=== PATIENT | male | born 1950 | race Caucasian/White ===

== ENCOUNTER 2017-01-25 22:14 | Emergency (ER) | payer MEDICARE, OTHER ==
[~2017-01-25] VITALS: Ht 182.9 cm; Wt 90.9 kg
[2017-01-25] MEDS ORDERED: ALLO15TA (22:21)
[2017-01-25] MEDS ORDERED: PARO25TA (22:21)
[2017-01-25] MEDS ORDERED: ATOR40TA75 (22:21)
[2017-01-25] MEDS ORDERED: RAMI5CA (22:21)
[2017-01-25] MEDS ORDERED: ECOT81TA5 PO (22:21)
[2017-01-25] MEDS ORDERED: KETOROLAC 30 MG/ML VIAL (J1885) IV ONE (23:00)
[2017-01-25] MEDS ORDERED: MORPHINE 4 MG/ML 1ML SYRINGE IV PRN (23:00)
[2017-01-25] MEDS ORDERED: ONDANSETRON 4MG/2ML VIAL (J2405) IV ONE (23:00)
[2017-01-25 23:09] LABS: BASO % 0.3 % (0.0-1.0); EOS # 0.2 K/mm3 (0.0-0.50); EOS % 2.4 % (0.0-3.0); LARGE UNSTAINED CELL # 0.1 K/mm3 (0.0-0.4); LARGE UNSTAINED CELL % 1.5 % (0.0-4.0); LYMPH # 1.7 K/mm3 (1.5-4.5); LYMPH % 17.6 % (24.0-44.0); MEAN CORPUSCULAR HGB CONC 34.6 g/dl (32.0-36.5); MEAN CORPUSCULAR VOLUME 89.6 fl (80.0-96.0); MONO # 0.5 K/mm3 (0.0-0.8); MONO % 5.9 % (0.0-5.0); NEUTROPHILS # 6.3 K/mm3 (1.8-7.7); NEUTROPHILS % 72.2 % (36.0-66.0); PLATELET COUNT, AUTOMATED 220 k/mm3 (150-450); RED CELL DISTRIBUTION WIDTH 13.2 % (11.5-14.5); WHITE BLOOD COUNT 8.7 K/mm3 (4.0-10.0)
[2017-01-25 23:11] LABS: ALBUMIN 3.7 GM/DL (3.2-5.2); ALBUMIN/GLOBULIN RATIO 1.03 (1.00-1.93); BILIRUBIN,DIRECT 0.1 MG/DL (0.0-0.2); BILIRUBIN,TOTAL 0.5 MG/DL (0.2-1.0); CALCIUM LEVEL 9.1 MG/DL (8.8-10.2); CREATININE FOR GFR 1.33 MG/DL (0.70-1.30); GLOMERULAR FILTRATION RATE 56.9 (>49); POTASSIUM SERUM 4.1 MEQ/L (3.5-5.1); TOTAL PROTEIN 7.3 GM/DL (6.4-8.2)
--- NOTE | 2017-01-25 23:30 | REPUSA ---
CT of the abdomen and pelvis without contrast Clinical statement: Pain. Technique: Multiple axial CT images were obtained from the base of the lungs to the floor of the pelv is utilizing 5 mm axial slices without administration of contrast. Coronal and sagittal reconstructio ns were also obtained. No comparison is available. Findings: Chest: The visualized lung bases are clear. Abdomen: The kidneys are normal in size bilaterally. There is moderate right-sided hydronephrosis and hydroureter, caused by a 2 mm obstructing stone at the right ureterovesical junction. Mild right-johnathon ed perinephric inflammation is also noted. The left renal collecting system is within normal limits. The liver, spleen, pancreas, gallbladder and adrenal glands are unremarkable. The aorta demonstrates normal caliber and contour. There is no abdominal lymphadenopathy or ascites. Pelvis: The bowel is unremarkable, with no obstructive or inflammatory changes. The appendix is judith l. Minimal sigmoid diverticulosis is appreciated. The urinary bladder is within normal limits. There is no pelvic lymphadenopathy or ascites. The other pelvic structures appear unremarkable. Bones: There are no suspicious osseous abnormalities seen. Moderate degenerative disc disease with sm all disc osteophyte complexes are seen at L4/L5 and L5/S1. Impression: 1. Moderate right-sided hydronephrosis and hydroureter, with right perinephric inflammation, caused b y a 2 mm obstructing stone in the right ureterovesical junction. 2. No obstructive or inflammatory bowel changes. Mild sigmoid diverticulosis. 3. Moderate degenerative disc disease at L4/L5 and L5/S1.
[2017-01-26 01:35] VITALS: O2SAT 96
[2017-01-26] MEDS ORDERED: PERC5TAB12 PO (01:39)
[2017-01-26] MEDS ORDERED: ZOFR4TAB3 PO (01:39)
[2017-01-26] MEDS ORDERED: OXYCODONE/APAP 5MG/325MG(BULK FOR ED) 1 TABLET PO ONE (01:45)
[2017-01-26] MEDS ORDERED: ONDANSETRON 4 MG ORAL DISINTEGRATING TAB (S0181) PO ONE (01:45)
[2017-01-26 01:52] VITALS: BP 151/78
== END 2017-01-26 01:54 | disposition home or self-care (01) ==
LOC: M ED 22:14
DX: N23 Unspecified renal colic (principal); K57.30 Diverticulosis of large intestine without perforation or abscess without bleeding; M10.9 Gout, unspecified; I10 Essential (primary) hypertension; N13.4 Hydroureter; N13.1 Hydronephrosis with ureteral stricture, not elsewhere classified; M51.36 Other intervertebral disc degeneration, lumbar region; M51.37 Other intervertebral disc degeneration, lumbosacral region; Z79.82 Long term (current) use of aspirin; Z79.899 Other long term (current) drug therapy
CPT/HCPCS: 74176; 80048; 80076; 81001; 83690; 85025; 93041; 96374; 96375; 99284; J1885; J2405

== ENCOUNTER → 2018-03-16 | Outpatient (CLI) | payer MEDICARE, OTHER ==
[2018-03-16 17:43] LABS: HEMATOCRIT 41.2 % (42.0-52.0); HEMOGLOBIN 14.4 g/dl (13.5-17.5); MEAN CORPUSCULAR HEMOGLOBIN 32.7 pg (27.0-33.0); MEAN CORPUSCULAR VOLUME 93.6 fl (80.0-96.0); PLATELET COUNT, AUTOMATED 212 10^3/uL (150-450); WHITE BLOOD COUNT 5.8 10^3/uL (4.0-10.0)
[2018-03-16 18:00] LABS: ANION GAP 8 MEQ/L (8-16); BLOOD UREA NITROGEN 19 MG/DL (7-18); CALCIUM LEVEL 8.8 MG/DL (8.8-10.2); CARBON DIOXIDE LEVEL 26 MEQ/L (21-32); CHLORIDE LEVEL 110 MEQ/L (98-107); CREATININE FOR GFR 0.95 MG/DL (0.70-1.30); GLOMERULAR FILTRATION RATE > 60.0 (>49); GLUCOSE, FASTING 97 MG/DL (70-100); POTASSIUM SERUM 4.8 MEQ/L (3.5-5.1); SODIUM LEVEL 144 MEQ/L (136-145)
== END ==
LOC: M WUC 14:31
DX: I25.10 Atherosclerotic heart disease of native coronary artery without angina pectoris (principal); I10 Essential (primary) hypertension
CPT/HCPCS: 80048

== ENCOUNTER 2018-06-24 12:01 | Outpatient (RCR) | payer MEDICARE, OTHER ==
[~2018-06-24 12:01] MED LIST: ALLO15TA; ATOR40TA75; ECOT81TA5 PO; PARO25TA; PERC5TAB12 PO; RAMI1CAP24; ZOFR4TAB14 PO
[2018-06-24] MEDS ORDERED: VITA50TA47 PO (12:43)
[2018-06-24] MEDS ORDERED: CENTCHW4 PO (12:43)
[2018-06-24] MEDS ORDERED: ALLO100T PO (12:45)
[2018-06-24] MEDS ORDERED: BAYE325T12 PO (12:45)
--- NOTE | 2018-06-24 14:21 | CARECAPL ---
Assessment Account #s: Initial Assessment General Diagnoses: CABG Date of event: Mar 26, 2018 Physician: Cb Norton Allergies: Coded Allergies: No Known Allergies (Verified , 01/02/03) Date Entered Program: Jun 24, 2018 Risk strat for cardiac event: Low Exercise Date: Jun 24, 2018 Assessment: Initial Assessment Exercise Prescription Plan educate and increase endurance through exercise Modalities initiated: Treadmill (mets 2.15 RPE 3), Nustep (mets 2.8 RPE 2), Arm Aerometer (mets 3.0 RPE 3), Dumbells (will add), Recumbent Bike (will add) Frequency: 3 Duration (Minutes) 30-60 minutes total exercise a day. 15-20 work intervals in minutes. prn rest intervals in minutes. Functional Capacity Goal Sustained Metabolic Equivalent of a task (MET) goal of 4.0-4.75 for 15-20 minutes. Intensity: 3-Moderate Progression (METS) Increase by: 0.5 METS every: 3-5 sessions Angina with ex: No Target Heart Rate 91-129 age predicted Resistance Training: Yes Weight (pounds): 1 Reps: 8-12 Hypertension: Yes Hypertension controlled with: Medication Resting 149/85 Peak Exercise BP 158/80 Meds ramipril Medications Scheduled Allopurinol (Allopurinol), 300 MG PO DAILY, (Reported) Aspirin (Estella Aspirin), 1 TAB PO DAILY, (Reported) Multivitamins (Centrum), 1 TAB PO DAILY, (Reported) Thiamine HCl (Vitamin B-1), 100 MG PO DAILY, (Reported) Miscellaneous Medications Atorvastatin Calcium (Atorvastatin Calcium), (Reported) Ramipril (Ramipril), (Reported) Discontinued Medications Allopurinol (Allopurinol), (Reported) Discontinued Reason: PCP discontinued med Aspirin (Ecotrin Low Strength), 81 MG PO, (Reported) Discontinued Reason: PCP discontinued med Ondansetron (Zofran Odt), 4 MG PO Q4H PRN for NAUSEA Discontinued Reason: PCP discontinued med Oxycodone/Acetaminophen (Percocet 5-325 mg), 1 TAB PO Q6H PRN for PAIN Discontinued Reason: PCP discontinued med Paroxetine (Paroxetine HCl ER), (Reported) Discontinued Reason: PCP discontinued med Target Goals Individual exercise Rx (1) BP 140/90 or 130/80 if DM or CKD (1) Aerobic active 30+min 5 days per week (1) Nutrition Date: Jun 24, 2018 Assessment: Initial Assessment Lipid- med/supplement atorvastatin Diabetes Diabetes: No Monitor Blood Sugar at home: No Weight Management Weight (lbs): 198.2 Height (inches): 72 Waist Circumference (Inches): 43 BMI: 26.9 Special Diet: low salt Vitamin/Supplements: Multivitamin, Vitamin B Alcohol: weekly Alcohol Type: beer Alcohol Amount: other (10) Diet Access Tool: Rate your plate Score: 38 Intervention Nurse/patient discussion: Yes Dietary Goals eat healthier Referral to Diabetes education: No Referral to lipid clinic: No Referral to weight mangement p: No Education Eating Healthy Target goal LDL-C<100 if triglycerides are >200 Non-HDL-C should be <130 (1) LDL-C<70 for high risk patients (4) HbA1c<7% (1) BMI<25 Waist cir<40in M/<35in F (1) Education Date: Jun 24, 2018 Assessment: Initial Assessment Learning Barriers: cognitive (age related) Knowledge Test Score: 9 Family Support: Yes Tobacco use: Yes Quit: never smoked Tobacco Use Smokeless tobacco: Yes Smokeless tobacco amount: 2 Intervention Referral to smoking cessation: No Individual education and couns: No Tobacco Adjunct: No Education class schedule given: No Attended education classes: No Education: tobacco triggers, CAD, Risk factors, med compliance, cardiac A&P, Angina S/S, Sexuality Target Goals Complete cessation of tobacco use (1). Psychosocial Date: Jun 24, 2018 Assessment: Initial Assessment Psych Test (Initial/Discharge) Tool Used: CESD Score: 12 Intervention Physician Consult: No Physician Referral: No Psychotropic medication none recently discontinued but is asking Dr. Park to restart Education Education: Coping Techniques, S/S depression, Relaxation Techniques Target Goal Assess presence or absence of depression using a valid screening tool (1). Maximize coping skills (2). Positive support system (2). Patient/Program Goal Preventative Medication: Yes Aspirin, Yes SOPHY Inhibitor, Yes Statin/OTR lipid Lowering Fall Risk Assess: No Provider Assessment Session Number: 1 Provider Assessment: Proceed with rehab Yadira Werner RN Jun 24, 2018 14:21
== END 2018-06-28 ==
LOC: M CR 12:01
PROVIDERS: ATTEND Internal Medicine Cardiovascular Disease
DX: Z95.1 Presence of aortocoronary bypass graft (principal)

== ENCOUNTER 2018-07-21 15:01 | Outpatient (RCR) | payer MEDICARE, OTHER ==
--- NOTE | 2018-07-21 10:13 | CARECAPL ---
Assessment Account #s: Re-Assessment I General Diagnoses: CABG Date of event: Mar 26, 2018 Physician: Cb Norton Allergies: Coded Allergies: No Known Allergies (Verified , 01/02/03) Date Entered Program: Jun 24, 2018 Risk strat for cardiac event: Low Exercise Date: Jul 21, 2018 Assessment: Re-Assessment I Exercise Prescription Plan TO EDUCATE AND BUILD ENDURANCE THROUGH MONITORED EXERCISE Modalities initiated: Treadmill (METS=3.39/RPE=3), Cardio-Strider (METS=2.6/RPE=2), Arm Aerometer (METS=3.59/RPE=3), Dumbells (3#/RPE=2), Recumbent Bike (METS=4.5/RPE=4) Frequency: 3 Duration (Minutes) 30-60 minutes total exercise a day. [10-12 work intervals in minutes. 5 MIN PRN rest intervals in minutes. Functional Capacity Goal Sustained Metabolic Equivalent of a task (MET) goal of 4.0-4.75 for 15-20 minutes. Intensity: 3-Moderate Progression (METS) Increase by: 0.5 METS every: 5 sessions TOLERATED Angina with ex: No Target Heart Rate 91-129 AGE PREDICTED Resistance Training: Yes Weight (pounds): 3 Reps: 12-15 Hypertension: Yes Hypertension controlled with: Medication Resting 130/60 Peak Exercise BP 150/70 Medications Scheduled Allopurinol (Allopurinol), 300 MG PO DAILY, (Reported) Aspirin (Estella Aspirin), 1 TAB PO DAILY, (Reported) Multivitamins (Centrum), 1 TAB PO DAILY, (Reported) Thiamine HCl (Vitamin B-1), 100 MG PO DAILY, (Reported) Miscellaneous Medications Atorvastatin Calcium (Atorvastatin Calcium), (Reported) Ramipril (Ramipril), (Reported) Current BP 110/70 Med Change: No Intervention Resistance Training: Yes Education: Self pulse, Ex safety, S/S to report, Low NA diet, BP medication, RPE Scale, Equipment orientation, warm up/cool down, Understand BP, Physical Active Target Goals Individual exercise Rx (1) BP 140/90 or 130/80 if DM or CKD (1) Aerobic active 30+min 5 days per week (1) Nutrition Date: Jul 21, 2018 Assessment: Re-Assessment I Lipid- med/supplement ATORVASTATIN Med Change: No Diabetes Diabetes: No Monitor Blood Sugar at home: No Medication Change: No Weight Management Weight (lbs): 190.4 Special Diet: low salt Vitamin/Supplements: Multivitamin, Vitamin B Alcohol: weekly Alcohol Type: beer Alcohol Amount: other ((10)) Current Weight (pounds): 190.4 Intervention Indirect [employer] Consult: No Nurse/patient discussion: Yes Diet Class: Yes Referral to Diabetes education: No Referral to lipid clinic: No Referral to weight mangement p: No Education Eating Healthy Target goal LDL-C<100 if triglycerides are >200 Non-HDL-C should be <130 (1) LDL-C<70 for high risk patients (4) HbA1c<7% (1) BMI<25 Waist cir<40in M/<35in F (1) Education Date: Jul 21, 2018 Assessment: Re-Assessment I Family Support: Yes Tobacco use: Yes Tobacco Use Smokeless tobacco: Yes Smokeless tobacco amount: 2 Intervention Referral to smoking cessation: No Individual education and couns: No Tobacco Adjunct: No Education class schedule given: No Attended education classes: No Education: tobacco triggers, CAD, Risk factors, med compliance, cardiac A&P, Angina S/S, Sexuality Target Goals Complete cessation of tobacco use (1). Psychosocial Date: Jul 21, 2018 Assessment: Re-Assessment I Intervention Physician Consult: No Physician Referral: No Psychotropic medication NONE RECENTLY, PATIENT WILL DISCUSS WITH DR. SERRATO Med Change: No Stress Management Class: No Uses Stress Management Skills: Yes Education Education: Coping Techniques, S/S depression, Relaxation Techniques Target Goal Assess presence or absence of depression using a valid screening tool (1). Maximize coping skills (2). Positive support system (2). Patient/Program Goal Preventative Medication: Yes Aspirin, Yes SOHPY Inhibitor, Yes Statin/OTR lipid Lowering Fall Risk Assess: Yes (NOT A FALL RISK) Provider Assessment Session Number: 5 Aron Lynch RN Jul 21, 2018 10:13
[~2018-07-21 15:01] MED LIST changes: +ALLO100T PO; +BAYE325T12 PO; +CENTCHW4 PO; +VITA50TA47 PO
== END 2018-07-29 ==
LOC: M CR 15:01
PROVIDERS: ATTEND Internal Medicine Cardiovascular Disease
DX: Z95.1 Presence of aortocoronary bypass graft (principal)

== ENCOUNTER 2018-08-25 15:12 | Outpatient (RCR) | payer MEDICARE, OTHER ==
--- NOTE | 2018-08-16 08:59 | CARECAPL ---
Assessment Account #s: Re-Assessment II General Diagnoses: CABG Date of event: Mar 26, 2018 Physician: Cb Norton Allergies: Coded Allergies: No Known Allergies (Verified , 01/02/03) Date Entered Program: Jun 24, 2018 Risk strat for cardiac event: Low Exercise Date: Aug 12, 2018 Assessment: Re-Assessment II Exercise Prescription Modalities initiated: Treadmill (mets 3.71 RPE 2), Cardio-Strider (mets 2.7 RPE 3), Nustep (mets 3.1 RPE 3), Arm Aerometer (mets 3.1 RPE 3), Dumbells (4lbs RPE 3), Recumbent Bike (mets 4.4 RPE 3) Frequency: 2 Duration (Minutes) minutes total exercise a day. work intervals in minutes. rest intervals in minutes. Functional Capacity Goal Sustained Metabolic Equivalent of a task (MET) goal of for minutes. Progression (METS) Increase by: METS every: sessions Medications Scheduled Allopurinol (Allopurinol), 300 MG PO DAILY, (Reported) Aspirin (Estella Aspirin), 1 TAB PO DAILY, (Reported) Multivitamins (Centrum), 1 TAB PO DAILY, (Reported) Thiamine HCl (Vitamin B-1), 100 MG PO DAILY, (Reported) Miscellaneous Medications Atorvastatin Calcium (Atorvastatin Calcium), (Reported) Ramipril (Ramipril), (Reported) Current BP 138/76 Med Change: No Target Goals Individual exercise Rx (1) BP 140/90 or 130/80 if DM or CKD (1) Aerobic active 30+min 5 days per week (1) Nutrition Date: Aug 16, 2018 Assessment: Re-Assessment II Med Change: No Medication Change: No Current Weight (pounds): 193.4 Intervention Nurse/patient discussion: Yes Target goal LDL-C<100 if triglycerides are >200 Non-HDL-C should be <130 (1) LDL-C<70 for high risk patients (4) HbA1c<7% (1) BMI<25 Waist cir<40in M/<35in F (1) Education Date: Aug 16, 2018 Assessment: Re-Assessment II Target Goals Complete cessation of tobacco use (1). Psychosocial Date: Aug 16, 2018 Assessment: Re-Assessment II Med Change: No Stress Management Class: Yes Uses Stress Management Skills: Yes Education Education: Coping Techniques, S/S depression, Relaxation Techniques Target Goal Assess presence or absence of depression using a valid screening tool (1). Maximize coping skills (2). Positive support system (2). Patient/Program Goal Preventative Medication: Yes Aspirin, Yes SOPHY Inhibitor, Yes Statin/OTR lipid Lowering Fall Risk Assess: No Provider Assessment Session Number: 7 Provider Assessment: Proceed with rehab Yadira Werner RN Aug 16, 2018 08:59
== END 2018-08-26 ==
LOC: M CR 15:12
PROVIDERS: ATTEND Internal Medicine Cardiovascular Disease
DX: Z95.1 Presence of aortocoronary bypass graft (principal)

== ENCOUNTER 2018-09-15 14:06 | Outpatient (RCR) | payer MEDICARE, OTHER ==
--- NOTE | 2018-09-08 11:08 | CARECAPL ---
Assessment Account #s: Re-Assessment II General Diagnoses: CABG Date of event: Jun 24, 2018 Physician: Cb Norton Allergies: Coded Allergies: No Known Allergies (Verified , 01/02/03) Risk strat for cardiac event: Low Exercise Assessment: Re-Assessment II Exercise Prescription Modalities initiated: Treadmill (mets 3.95 RPE 2), Nustep (mets 3.8 RPE 3), Arm Aerometer (mets 3.4 RPE 3), Dumbells (5lbs RPE 2), Recumbent Bike (mets 3.7 RPE 3) Frequency: 2-3 Duration (Minutes) minutes total exercise a day. work intervals in minutes. rest intervals in minutes. Functional Capacity Goal Sustained Metabolic Equivalent of a task (MET) goal of for minutes. Progression (METS) Increase by: METS every: sessions Hypertension: No Hypertension controlled with: Medication Resting 124/76 Peak Exercise BP 142/80 Meds ramipril Medications Scheduled Allopurinol (Allopurinol), 300 MG PO DAILY, (Reported) Aspirin (Estella Aspirin), 1 TAB PO DAILY, (Reported) Multivitamins (Centrum), 1 TAB PO DAILY, (Reported) Thiamine HCl (Vitamin B-1), 100 MG PO DAILY, (Reported) Miscellaneous Medications Atorvastatin Calcium (Atorvastatin Calcium), (Reported) Ramipril (Ramipril), (Reported) Current BP 124/76 Med Change: No Target Goals Individual exercise Rx (1) BP 140/90 or 130/80 if DM or CKD (1) Aerobic active 30+min 5 days per week (1) Nutrition Date: Sep 08, 2018 Assessment: Re-Assessment II Med Change: No Diabetes Diabetes: No Medication Change: No Current Weight (pounds): 192.6 Education Eating Healthy Education Goals Met: Yes Target goal LDL-C<100 if triglycerides are >200 Non-HDL-C should be <130 (1) LDL-C<70 for high risk patients (4) HbA1c<7% (1) BMI<25 Waist cir<40in M/<35in F (1) Education Date: Sep 08, 2018 Assessment: Re-Assessment II Intervention Education: CAD, Risk factors, med compliance, cardiac A&P, Angina S/S, Sexuality Education Goals Met: Yes Target Goals Complete cessation of tobacco use (1). Psychosocial Date: Sep 08, 2018 Assessment: Re-Assessment II Med Change: No Stress Management Class: Yes Uses Stress Management Skills: Yes Education Education: Coping Techniques, S/S depression, Relaxation Techniques Education Goals Met: Yes Target Goal Assess presence or absence of depression using a valid screening tool (1). Maximize coping skills (2). Positive support system (2). Fall Risk Assess: No Provider Assessment Session Number: 10 Provider Assessment: Proceed with rehab Yadira Werner RN Sep 08, 2018 11:08
--- NOTE | 2018-09-15 09:27 | CARECAPL ---
General Date of event: Mar 26, 2018 Physician: Cb Norton Allergies: Coded Allergies: No Known Allergies (Verified , 01/02/03) Date Entered Program: Jun 24, 2018 Risk strat for cardiac event: Low Exercise Date: Sep 15, 2018 Assessment: Followup/Discharge Exercise Prescription Modalities initiated: Treadmill (mets 3.95 RPE 3), Nustep (mets 3.9 RPE 3), Arm Aerometer (mets 3.4 RPE 3), Dumbells (6lbs RPE 3), Recumbent Bike (mets 4.7 RPE 3) Frequency: 2 Duration (Minutes) minutes total exercise a day. work intervals in minutes. rest intervals in minutes. Functional Capacity Goal Sustained Metabolic Equivalent of a task (MET) goal of for minutes. Intensity: 3-Moderate Progression (METS) Increase by: METS every: sessions Hypertension: No Hypertension controlled with: Medication Resting 124/64 Peak Exercise BP 158/52 Meds ramipril Medications Scheduled Allopurinol (Allopurinol), 300 MG PO DAILY, (Reported) Aspirin (Estella Aspirin), 1 TAB PO DAILY, (Reported) Multivitamins (Centrum), 1 TAB PO DAILY, (Reported) Thiamine HCl (Vitamin B-1), 100 MG PO DAILY, (Reported) Miscellaneous Medications Atorvastatin Calcium (Atorvastatin Calcium), (Reported) Ramipril (Ramipril), (Reported) Education Goals Met: Yes Target Goals Individual exercise Rx (1) BP 140/90 or 130/80 if DM or CKD (1) Aerobic active 30+min 5 days per week (1) Nutrition Date: Sep 15, 2018 Assessment: Followup/Discharge Med Change: No Medication Change: No Weight Management Weight (lbs): 192.6 Height (inches): 72 BMI: 26.04 Diet Access Tool: Rate your plate Score: 42 Referral to Diabetes education: No Referral to lipid clinic: No Referral to weight mangement p: No Education Eating Healthy Education Goals Met: Yes Target goal LDL-C<100 if triglycerides are >200 Non-HDL-C should be <130 (1) LDL-C<70 for high risk patients (4) HbA1c<7% (1) BMI<25 Waist cir<40in M/<35in F (1) Education Date: Sep 15, 2018 Assessment: Followup/Discharge Knowledge Test Score: 10 Education Goals Met: Yes Target Goals Complete cessation of tobacco use (1). Psychosocial Date: Sep 15, 2018 Assessment: Followup/Discharge Psych Test (Initial/Discharge) Tool Used: CESD Score: 11 Med Change: No Education Goals Met: Yes Target Goal Assess presence or absence of depression using a valid screening tool (1). Maximize coping skills (2). Positive support system (2). Fall Risk Assess: No Provider Assessment Session Number: 11 Provider Assessment: Proceed with rehab (graduated) Yadira Werner RN Sep 15, 2018 09:27
== END 2018-09-26 ==
LOC: M CR 14:06
PROVIDERS: ATTEND Internal Medicine Cardiovascular Disease
DX: Z95.1 Presence of aortocoronary bypass graft (principal)

== ENCOUNTER 2018-11-08 09:07 | Day surgery (SDC) | payer MEDICARE, OTHER ==
[~2018-11-08] VITALS: Ht 182.9 cm; Wt 87.5 kg
[2018-11-08] MEDS: NS 1,000 ML IV ONE (07:00)
[~2018-11-08 09:07] MED LIST changes: -ALLO15TA; +ALLO300T2; -ATOR40TA75; +ATOR40TA75 PO; +LEXA1TAB PO; +PROPOFOL 200 MG/20 ML VIAL As Ordered ONE; -RAMI1CAP24; +RAMI1CAP24 PO
[2018-11-08] MEDS ORDERED: ASPI81TA85 PO (09:54)
[2018-11-08] MEDS ORDERED: FISH1000 PO (09:56)
[2018-11-08] MEDS ORDERED: PROPOFOL 200 MG/20 ML VIAL As Ordered ONE (10:50)
--- NOTE | 2018-11-08 10:56 | ROOR ---
Patient Name: Isaiah Solorio Procedure Date: 11/08/2018 10:32 AM Date of : 1950 Age: 68 Room: [facility] Gender: Male Note Status: Finalized Procedure: Total Colonoscopy to Cecum + Biopsy Polypectomy Indications: Heme positive stool Providers: Aron Burt MD Referring MD: NAHUN SERRATO JR, MD Requesting Provider: Medicines: Monitored Anesthesia Care Complications: No immediate complications. Procedure: Pre-Anesthesia Assessment: - The heart rate, respiratory rate, oxygen saturations, blood pressure, adequacy of pulmonary ventilation, and response to care were monitored throughout the procedure. The Colonoscope was introduced through the anus and advanced to the cecum, identified by appendiceal orifice and ileocecal valve. The colonoscopy was performed without difficulty. The patient tolerated the procedure well. The quality of the bowel preparation was excellent. Findings: The perianal and digital rectal examinations were normal. Non-bleeding internal hemorrhoids were found during retroflexion. The hemorrhoids were small and Grade I (internal hemorrhoids that do not prolapse). Scattered small-mouthed diverticula were found in the recto-sigmoid colon, sigmoid colon and descending colon. Two sessile polyps were found in the hepatic flexure. The polyps were diminutive in size. These polyps were removed with a jumbo cold forceps. Resection and retrieval were complete. A small polyp was found at 50 cm proximal to the anus. The polyp was sessile. The polyp was removed with a jumbo cold forceps. Resection and retrieval were complete. The exam was otherwise without abnormality on direct and retroflexion views. Impression: - Non-bleeding internal hemorrhoids. - Diverticulosis in the recto-sigmoid colon, in the sigmoid colon and in the descending colon. - Two diminutive polyps at the hepatic flexure, removed with a jumbo cold forceps. Resected and retrieved. - One small polyp at 50 cm proximal to the anus, removed with a jumbo cold forceps. Resected and retrieved. - The examination was otherwise normal on direct and retroflexion views. - The exam was otherwise normal to the cecum. Recommendation: - Patient has a contact number available for emergencies. The signs and symptoms of potential delayed complications were discussed with the patient. Return to normal activities tomorrow. Written discharge instructions were provided to the patient. - High fiber diet. - Discharge patient to home. - Continue present medications. - Await pathology results. - Telephone GI clinic for pathology results in 1 week. - Repeat colonoscopy in 5 years for surveillance based on pathology results. - Return to referring physician. - The findings and recommendations were discussed with the patient's family. Aron Burt MD Aron Burt MD 11/08/2018 10:55:43 AM Electronically signed by Aron Burt MD Number of Addenda: 0 Note Initiated On: 11/08/2018 10:32 AM Estimated Blood Loss: Estimated blood loss: none.
[2018-11-08 11:15] VITALS: BP 135/82
== END 2018-11-08 11:26 | disposition home or self-care (01) ==
LOC: M OPP 09:07
PROVIDERS: ATTEND Internal Medicine Gastroenterology
DX: D12.3 Benign neoplasm of transverse colon (principal); K64.0 First degree hemorrhoids; K57.30 Diverticulosis of large intestine without perforation or abscess without bleeding; R19.5 Other fecal abnormalities

== ENCOUNTER → 2020-06-02 | Outpatient (CLI) | payer MEDICARE, OTHER ==
[~2020-06-02] MED LIST changes: +ASPI81TA86 PO; +FISH1000 PO; -PARO25TA; +PARO25TA8; -PROPOFOL 200 MG/20 ML VIAL As Ordered ONE; +VITA100T28 PO
== END ==
LOC: M LABSMTC 09:29
PROVIDERS: ATTEND Anesthesiology
DX: Z01.812 Encounter for preprocedural laboratory examination (principal); Z20.828 Contact with and (suspected) exposure to other viral communicable diseases

== ENCOUNTER 2020-06-07 10:13 | Day surgery (SDC) | payer MEDICARE, OTHER ==
[~2020-06-07] VITALS: Ht 182.9 cm; Wt 465.8 kg
[~2020-06-07 10:13] MED LIST changes: +CEFUROXIME 1MG/0.1ML INTRACAMERAL INJ As Ordered ONE; +DUOVISC (0.50ML VISCOAT/0.55ML PROVISC) OPHTH KIT As Ordered ONE; +OFLOXACIN 0.3 % (OCUFLOX) OPTH SOL 5ML OD ONE; +PHENYLEPHRINE 2.5% OPHTH SOL 2ML OD ONE; +POVIDONE-IODINE 5% OPHTH PREP SOL 30ML As Ordered ONE; +PROPARACAINE 0.5% OPHTH SOL 15ML OD ONE; +TROPICAMIDE 1% OPHTH SOLN 2ML OD ONE
[2020-06-07] MEDS ORDERED: BSS IRR 500ML/OMIDRIA 4ML IRR BAG (OR ONLY) As Ordered ONE (11:12)
[2020-06-07] MEDS ORDERED: propofoL 200 MG/20 ML VIAL As Ordered ONE (12:25)
[2020-06-07] MEDS ORDERED: MIDAZOLAM INJ 2MG/2ML VIAL (J2250 PER 1MG) As Ordered ONE ×2 (12:25→12:27)
[2020-06-07] MEDS ORDERED: fentaNYL 250 MCG/5 ML INJECTION (J3010) As Ordered ONE (12:25)
[2020-06-07 13:00] VITALS: BP 160/76
--- NOTE | 2020-06-12 15:40 | RO ---
OPERATIVE NOTE DATE OF OPERATION: 06/07/2020 PREOPERATIVE DIAGNOSIS: Visually significant nuclear sclerotic cataract, right eye. POSTOPERATIVE DIAGNOSIS: Visually significant nuclear sclerotic cataract, right eye. PROCEDURE: Cataract extraction with use of phacoemulsification, and placement of intraocular lens, AU00T0, 20.0, right eye. SURGEON: Delta Burt DO ANESTHESIA: Local (Omidria with MAC) COMPLICATIONS: None POSTOPERATIVE CONDITION: Stable INDICATIONS FOR SURGERY: Blurred vision affecting patient's activities of daily living. DESCRIPTION OF PROCEDURE: The patient was seen in the preoperative area and properly identified. The correct operative eye was identified and marked. The patient received topical anesthetic, antibiotics, and topical dilating drops. The patient was then transferred to the operating room. The correct side was re-identified and a time-out was performed. The eye was prepped and draped in a sterile fashion. The eyelids were isolated with Tegaderm tape and the lids were held open with an adjustable speculum. A 1.0mm paracentesis incision was made. Omidria was then injected into the anterior chamber. Viscoelastic was then injected into the anterior chamber through the paracentesis. Using a 2.4mm sharp-tipped keratome, the anterior chamber was entered via a temporal clear cornea incision. A continuous curvilinear capsulorrhexis was created with Utrata forceps. Hydrodissection was performed with BSS on a blunt cannula until the nucleus was able to rotate freely. The crystalline lens was phacoemulsified and aspirated. Irrigation/aspiration was used to remove the cortical material Cohesive viscoelastic was placed into the capsular bag to deepen it. The implant was placed into the capsular bag and allowed to unfold. Placement was confirmed by visualizing the anterior capsulorrhexis. Irrigation/aspiration was used to remove the viscoelastic. The clear corneal incision was hydrated with BSS on a blunt cannula. The lens was well positioned. Intracameral antibiotic was injected into the anterior chamber. The incisions were then tested for leaks and found to be negative. The eye was then palpated for appropriate pressure and adjusted accordingly with BSS. The eyelid speculum was then carefully removed. A shield was placed over the eye. The patient tolerated the procedure well and was discharge to the recovery unit in a stable condition.
== END 2020-06-07 13:30 | disposition home or self-care (01) ==
LOC: M SDC 10:13
PROVIDERS: ATTEND Ophthalmology
DX: H25.11 Age-related nuclear cataract, right eye (principal); I10 Essential (primary) hypertension; I25.10 Atherosclerotic heart disease of native coronary artery without angina pectoris; Z95.1 Presence of aortocoronary bypass graft; Z98.61 Coronary angioplasty status; Z79.82 Long term (current) use of aspirin; E78.00 Pure hypercholesterolemia, unspecified; M10.9 Gout, unspecified; F32.9 Major depressive disorder, single episode, unspecified; Z79.01 Long term (current) use of anticoagulants; Z79.899 Other long term (current) drug therapy
CPT/HCPCS: 66984; J1097; J2250; J3010; V2632

== ENCOUNTER → 2021-05-06 | Outpatient (REF) | payer MEDICARE, OTHER ==
[~2021-05-06] MED LIST changes: -CEFUROXIME 1MG/0.1ML INTRACAMERAL INJ As Ordered ONE; -DUOVISC (0.50ML VISCOAT/0.55ML PROVISC) OPHTH KIT As Ordered ONE; -OFLOXACIN 0.3 % (OCUFLOX) OPTH SOL 5ML OD ONE; -PHENYLEPHRINE 2.5% OPHTH SOL 2ML OD ONE; -POVIDONE-IODINE 5% OPHTH PREP SOL 30ML As Ordered ONE; -PROPARACAINE 0.5% OPHTH SOL 15ML OD ONE; -TROPICAMIDE 1% OPHTH SOLN 2ML OD ONE
== END ==
LOC: M LAB REF 11:20
PROVIDERS: ATTEND Internal Medicine
DX: R79.89 Other specified abnormal findings of blood chemistry (principal)

== ENCOUNTER → 2021-08-31 | Outpatient (CLI) | payer MEDICARE, OTHER ==
[~2021-08-31] MED LIST changes: +PARO25TA5; -PARO25TA8
== END ==
LOC: M LABSMTC 10:26
PROVIDERS: ATTEND Anesthesiology
DX: Z01.812 Encounter for preprocedural laboratory examination (principal); Z20.822 Contact with and (suspected) exposure to COVID-19

== ENCOUNTER 2021-09-05 07:47 | Day surgery (SDC) | payer MEDICARE, OTHER ==
[~2021-09-05] VITALS: Ht 182.9 cm; Wt 93.4 kg
[~2021-09-05 07:47] MED LIST changes: +CYCLOPENTOLATE 1% OPHTH SOLN 2 ML BTL OS SCH; +FLURBIPROFEN 0.03% OPHTH SOLN 2.5 ML OS SCH; +LIDOCAINE 1% SDV 5ML VIAL As Ordered ONE; +LR 1,000 ML IV SCH; +MAXITROL OPHTH SUSP 5 ML As Ordered ONE; +MIDAZOLAM INJ 2MG/2ML VIAL (J2250 PER 1MG) As Ordered ONE; +PHENYLEPHRINE 2.5% OPHTH SOL 2ML OS SCH; +fentaNYL 100 MCG/2 ML INJECTION As Ordered ONE
[2021-09-05] MEDS: TETRACAINE 0.5% OPHTH SOLN 4ML OS SCH ×2 (08:28→10:15)
[2021-09-05 10:39] VITALS: BP 124/69
== END 2021-09-05 10:50 | disposition home or self-care (01) ==
LOC: M SDC 07:47
PROVIDERS: ATTEND Ophthalmology
DX: H25.12 Age-related nuclear cataract, left eye (principal); I25.10 Atherosclerotic heart disease of native coronary artery without angina pectoris; I10 Essential (primary) hypertension; E78.5 Hyperlipidemia, unspecified; Z98.61 Coronary angioplasty status; M10.9 Gout, unspecified; Z87.891 Personal history of nicotine dependence; Z79.899 Other long term (current) drug therapy
CPT/HCPCS: 66984; J2250; J3010; V2632

== ENCOUNTER → 2022-05-04 | Outpatient (CLI) | payer MEDICARE, OTHER ==
[~2022-05-04] MED LIST changes: +ALLO300T2 PO; +BAYE81TA7 PO; +CENT1TAB PO; -CYCLOPENTOLATE 1% OPHTH SOLN 2 ML BTL OS SCH; +EQL50TAB2 PO; -FLURBIPROFEN 0.03% OPHTH SOLN 2.5 ML OS SCH; -LIDOCAINE 1% SDV 5ML VIAL As Ordered ONE; -LR 1,000 ML IV SCH; -MAXITROL OPHTH SUSP 5 ML As Ordered ONE; -MIDAZOLAM INJ 2MG/2ML VIAL (J2250 PER 1MG) As Ordered ONE; -PHENYLEPHRINE 2.5% OPHTH SOL 2ML OS SCH; -fentaNYL 100 MCG/2 ML INJECTION As Ordered ONE
== END ==
LOC: M LABSMTC 09:53
PROVIDERS: ATTEND Anesthesiology
DX: Z01.812 Encounter for preprocedural laboratory examination (principal); Z20.822 Contact with and (suspected) exposure to COVID-19

== ENCOUNTER 2022-05-07 08:32 | Day surgery (SDC) | payer MEDICARE, OTHER ==
[~2022-05-07] VITALS: Ht 182.9 cm; Wt 89.4 kg
[~2022-05-07 08:32] MED LIST changes: +NS 1,000 ML IV ONE
[2022-05-07] MEDS ORDERED: LIDOCAINE 2% 100MG/5ML SDV (FOR ANES.) As Ordered ONE (09:37)
[2022-05-07] MEDS ORDERED: propofoL 200 MG/20 ML VIAL As Ordered ONE ×2 (09:37→09:45)
[2022-05-07 10:05] VITALS: BP 125/72
== END 2022-05-07 10:11 | disposition home or self-care (01) ==
LOC: M OPP 08:32
PROVIDERS: ATTEND Internal Medicine Gastroenterology
DX: Z12.11 Encounter for screening for malignant neoplasm of colon (principal); Z86.010 Personal history of colon polyps; K64.0 First degree hemorrhoids; K57.30 Diverticulosis of large intestine without perforation or abscess without bleeding; Z79.02 Long term (current) use of antithrombotics/antiplatelets; Z79.82 Long term (current) use of aspirin; Z79.899 Other long term (current) drug therapy; I10 Essential (primary) hypertension; E78.00 Pure hypercholesterolemia, unspecified; F41.9 Anxiety disorder, unspecified; Z87.891 Personal history of nicotine dependence; Z80.51 Family history of malignant neoplasm of kidney

== ENCOUNTER → 2024-10-28 | Outpatient (CLI) | payer MEDICARE, OTHER ==
[~2024-10-28] MED LIST changes: -BAYE325T12 PO; +BAYE325T2 PO; -NS 1,000 ML IV ONE; -RAMI1CAP24 PO; +RAMI5CAP60 PO
== END ==
LOC: M PLAIMG 13:16
PROVIDERS: ATTEND Physician Assistant
DX: I77.810 Thoracic aortic ectasia (principal)